=== PATIENT | male | born 1945 ===

== ENCOUNTER → 2017-11-14 | Outpatient (CLI) | payer OTHER, BC | LOC: SBRMNEURO 21:00 | PROVIDERS: ATTEND Internal Medicine Pulmonary Disease | DX: G47.33 Obstructive sleep apnea (adult) (pediatric) (principal); G47.31 Primary central sleep apnea; G47.36 Sleep related hypoventilation in conditions classified elsewhere; G47.61 Periodic limb movement disorder ==